=== PATIENT | male | born 1965 | race Caucasian/White ===

== ENCOUNTER 2022-11-29 09:25 | Outpatient (AMB) | payer OTHER, SELFPAY ==
[2022-11-29 09:36] VITALS: BP 128/80; PULSE 86; TEMP 37.2; O2SAT 98; BMI 28.8
--- NOTE | 2022-11-29 09:36 | AM.OFFWIN_ITS ---
Intake Vital Signs 11/29/22 09:36 Height 5 ft 4 in Weight 168 lb BMI 28.8 BP 128/80 Blood Pressure Location Lt brachial Position Sitting Pulse 86 Pulse Source Pulse Oximeter Temp 99.0 F Temp Source Temporal Artery Scan Pulse Oximetry (%) 98 Oxygen Delivery Method Room Air Intake Visit Reasons: EP, Low back pain Intake Note: pt is here for c/o lower back pain due to injury at work. states he pulled his lower back out at work. patient also states hes been having cramping in his hands and feet and tingly sensation in face since sunday Patient Tobacco Use Status: Current everyday Tobacco user Allergies No Known Allergies Allergy (Verified 11/29/22 10:08) Medication List - Last Reconciled 11/29/22 by Saran Cabral MD albuterol sulfate 90 mcg/actuation 2 puffs inhalation Q4H PRN atorvastatin 40 mg PO DAILY cyclobenzaprine 10 mg PO BEDTIME losartan 100 mg PO DAILY meloxicam 15 mg PO DAILY pantoprazole 40 mg PO DAILY thiamine HCl (vitamin B1) 100 mg PO DAILY Do you need a note to return to daycare/school/sports/work: Yes HPI EP, Low back pain HPI Details Patient presents to the office for a sick visit. Complaining of lower back pain for the past week. No history of fall or trauma prior to the onset of symptoms. No urinary incontinence. No fevers or chills. Pain is worse on bending forwards or sideways. Relieve done sitting down. Pain is radiating into the gluteal area. PFSH Social History Patient Tobacco Use Status: Current everyday Tobacco user Physical Exam Vital Signs: Last Vital Signs Temp 99.0 F 11/29/22 09:36 Pulse 86 11/29/22 09:36 BP 128/80 11/29/22 09:36 Pulse Ox 98 11/29/22 09:36 Oxygen Delivery Method Room Air 11/29/22 09:36 BMI result Body Mass Index 28.8 Const General: cooperative and healthy appearing Nutritional Appearance: well nourished Orientation/consciousness: patient oriented x3 Limitations: no limitations HEENT Head: Yes normal to inspection Eyes General: appearance normal, both eyes and all related structures Neck Neck: Yes normal visual inspection Chest Chest palpation & inspection: normal palpation of entire chest wall Resp Effort & Inspection: normal respiratory effort General: Yes no CVA tenderness Back/Spine/Pelvis Other: No spinal tenderness or paraspinal spasm. Back: no CVA tenderness Neuro General: patient oriented x3 Office Meds ketorolac 60 mg/2 mL intramuscular solution Performing Provider: Saran Cabral MD Performing Location: [facility] Administered by: Odalys Campbell RN on 11/29/22 10:02 Dose Route Admin Location Dispensed Lot Number Expiration Date [employer] 60 mg IM right gluteal 2.0 mL [id number] 05/18/23 01436-353-12 [employer] Assessment & Plan Assessment & Plan (1) Low back pain: Code(s): M54.50 - Low back pain, unspecified Qualifiers: Chronicity: acute Back pain laterality: bilateral Sciatica presence: without sciatica Qualified Code(s): M54.50 - Low back pain, unspecified Plan: Meloxicam and cyclobenzaprine called in. Toradol injection provided. Patient was advised rest. Note for work if necessary provided. Once pain symptoms subside, patient should start physical therapy. If symptoms worsen to follow-up here. Orders: Orders AMB Ketorolac Injection Today M54.50 - Low back pain, unspecified Medications: New meloxicam 15 mg PO DAILY 14 tabs 0RF cyclobenzaprine 10 mg PO BEDTIME 14 tabs 0RF Coding Level of Care Code Est Pt Level 4 (99802) Diagnoses Acute bilateral low back pain without sciatica M54.50 Chronicity: acute Back pain laterality: bilateral Sciatica presence: without sciatica
== END 2022-11-29 10:32 | disposition home or self-care (01) ==
PROVIDERS: PCP Emergency Medicine Emergency Medical Services; Visit Provider Internal Medicine
DX: M54.50 Low back pain, unspecified (principal)
CPT/HCPCS: 96372; 99214; J1885

== ENCOUNTER 2023-03-23 13:34 | Emergency (ER) | payer OTHER, SELFPAY ==
--- NOTE | 2023-03-23 13:37 | ED.FALL ---
HPI - Fall General Chief Complaint: Altered Mental Status Stated Complaint: FALL +LOC+MEJIA+HIT HEAD PER EMS Time Seen by Provider: 03/23/23 13:36 Source: patient, family and EMS Mode of arrival: EMS Limitations: no limitations History of Present Illness HPI Narrative: Patient is a 58-year-old male who presents emergency department via EMS for evaluation after syncopal episode with head strike. Patient reports that he was feeling well prior to this episode. He does admit to drinking 3 or 4 twisted teas and a few shots of hard liquor. He is a daily drinker states he typically does drink about this amount, denies history of DT/ seizures with withdrawal. He states that he was eating a piece of candy when he suddenly felt like he was choking on it. Per his daughter's report EMS was present at this time he then syncopized and fell down striking his head against the floor and had lost consciousness for a few seconds before coming to. The daughter called EMS. Upon EMS arrival patient was able to reports everything that had happened. He was going to refuse transport to the hospital, however once EMS asked him questions regarding orientation i.e. place time he was unable to answer these questions appropriately. He then was agreeable for transport. At the time my examination he remains confused to time, unaware of the year or the season or time day. He is oriented to person place and present. His only report at this time is a diffuse headache. He denies any globus sensation, difficulty breathing, chest pain, vision changes, neck pain, neck stiffness, nausea, vomiting, abdominal pain, numbness or tingling of his extremities. He does report he has a history of hypertension and hyperlipidemia for which he reports medication compliance. Related Data Home Medications Medication Instructions Recorded Confirmed albuterol sulfate 90 mcg/actuation 2 puff inhalation Q4H PRN cough 11/29/22 aerosol inhaler atorvastatin 40 mg tablet 40 mg PO DAILY 11/29/22 losartan 100 mg tablet 100 mg PO DAILY 11/29/22 pantoprazole 40 mg tablet,delayed 40 mg PO DAILY 11/29/22 release thiamine HCl (vitamin B1) 100 mg 100 mg PO DAILY 11/29/22 tablet Previous Rx's Medication Instructions Recorded cyclobenzaprine 10 mg tablet 10 mg PO BEDTIME #14 tabs 11/29/22 meloxicam 15 mg tablet 15 mg PO DAILY #14 tabs 11/29/22 Allergies Allergy/AdvReac Type Severity Reaction Status Date / Time No Known Allergies Allergy Verified 11/29/22 10:08 Review of Systems Review of Systems: Yes all other systems are reviewed and are negative [facility] Past Medical History Attestation statement: The following information was validated with the patient. Source: old records reviewed Onset Date is defined in the Problem List Problems that require an onset date and time if occurred within 24 hrs of arrival to the ED Aortic Dissection and Rupture; Neurologic impairment; Cardiopulmonary Arrest; Endotracheal Intubation; Insertion or Replacement of Mechanical Circulatory Assist Device Social History Social History Patient Tobacco Use Status: Current everyday Tobacco user Advance Directives: No Advance Directives Information Provided: Yes Physical Exam Vital Signs: Vital Signs: Last Vital Signs Temp 97.7 F 03/23/23 13:56 Pulse 53 03/23/23 17:49 Resp 12 03/23/23 17:49 BP 156/88 H 03/23/23 17:49 Pulse Ox 96 03/23/23 17:49 O2 Del Method Room Air 03/23/23 17:49 BMI result Body Mass Index 29.3 Appearance: Alert.?Oriented to person, place and time. No acute distress.?Normal affect. Head: Normocephalic, atraumatic. Eyes: Pupils equal, round and reactive to light.? EOMI. No nystagmus. ENT: Pharynx normal.?? Neck: Normal inspection.? Neck supple.?? No midline cervical spine tenderness, step-offs, deformities. CVS: Heart sounds normal. Normal heart rate and rhythm.? Pulses normal.?? Respiratory: No respiratory distress.? Lung sounds clear to auscultation bilaterally?? Abdomen: Soft and non-tender. Normoactive bowel sounds. ? Skin: Skin warm and dry.? Normal skin color.? Extremities: No lower extremity edema.? ? Neuro: Moves all extremities spontaneously. Sensation intact bilaterally. CN II-XII intact. No focal neuro deficits. Ambulates with normal steady gait. NIH Stroke Scale Internal: Initial- Upon Arrival Time: 13:51 Level of Consciousness: Alert Level of Consciousness Questions: Answers both questions correctly Level of Consciousness Commands: Performs both tasks correctly Best Gaze: Normal Visual: No visual loss Facial Palsy: Normal Motor Arm (Right): No drift Motor Arm (Left): No drift Motor Leg (Right): No drift Motor Leg (Left): No drift Limb Ataxia: Absent Sensory: Normal Best Language: No aphasia Dysarthia: Normal Extinction and Inattention: No abnormality Score: 0 Course Reevaluation(s) Reevaluation #1: CT of the head and cervical spine reveals no evidence of acute intracranial abnormality nor abnormality of the cervical spine. CBC reveals very mild leukocytosis of 11.4, no left shift , mild macrocytic anemia the does not meet transfusion criteria likely secondary to ETOH. COVID- 19 and influenza Testing are negative. Ethanol level of 142. She CMP revealing mild transaminitis, no history of priors for comparison, no right upper quadrant tenderness upon palpation, jaundice, I suspect this is secondary to chronic alcohol consumption. High sensitive troponin 3.7, EKG revealing normal sinus rhythm without acute ischemic findings. However given the history will obtain delta troponin to fully exclude ACS as etiology for symptoms. Reevaluation #2: Delta trop is negative. Disorientation has resolved. Conscious alert and oriented x3. Ambulatory with a steady gait. Headache has resolved. No current complaints. Suspect vasovagal syncope secondary to coughing his etiology for symptoms today. Reviewed worrisome signs and symptoms that would warrant re-evaluation in the emergency department. Offered detox from alcohol he declines detox services at this time. Stable for discharge. Time: 18:03 Medications Administered Discontinued Medications Generic Name Dose Route Start Last Admin Trade Name Joaquinq PRN Reason Stop Dose Admin Acetaminophen 975 mg 03/23/23 14:25 03/23/23 14:31 Acetaminophen 325 Mg Tablet PO 03/23/23 14:26 975 mg ONCE ONE Administration Sodium Chloride 1,000 mls @ 999 mls/hr 03/23/23 14:30 03/23/23 17:14 Ns IV 03/23/23 15:30 Infused .Q1H1M [facility] Infusion Medical Decision Making Medical Decision Making [facility] Narrative: Patient is a 58-year-old male with past medical history of hypertension hyperlipidemia who presents emergency department via EMS for evaluation after a syncopal episode with head strike loss of consciousness. He does admit to ETOH consumption prior to this. He is disoriented to time since this event which per his daughter would be atypical for him. Will obtain CBC to evaluate for leukocytosis/ anemia, CMP and lipase to evaluate for abnormal electrolytes /abnormal renal function/ abnormal hepatic/biliary function, EKG and troponin to evaluate for ischemia/ACS. Chest x-ray to evaluate for consolidation/ infiltrate/ mass/ pulmonary congestion, CT of the head and cervical spine to exclude ICH/ SDH/fracture/ subluxation, and urinalysis. In addition will obtain toxicology testing an ethanol level. Differential Diagnosis Differential Diagnoses: The differential diagnosis associated with the presentation includes ( See narrative above) Admission/Observation Consideration of admission/observation: Escalation of care including admission/observation considered ( see narrative above and course narrative for further details) Lab Data MDM Lab Attestation statement: I reviewed the patient's lab results. ( see course narrative) 03/23/23 14:11 03/23/23 14:11 Labs: Lab Results 03/23/23 03/23/23 03/23/23 Range/Units 14:08 14:10 14:11 WBC 11.4 H (4.8-10.8) X10*3/uL RBC 3.90 L (4.60-5.80) X10*6/uL Hgb 13.4 L (14.0-18.0) g/dl Hct 39.4 L (42.0-52.0) % MCV 101.0 H (80.0-98.0) fL MCH 34.4 H (27.0-33.0) pg MCHC 34.0 (31.0-36.0) g/dl RDW 13.0 (11.0-16.0) % Plt Count 285 (160-400) X10*3/uL MPV 10.5 (9.4-12.4) fL Immature Gran % (Auto) 0.4 (0.0-0.4) % Neut % (Auto) 54.4 (45-73) % Lymph % (Auto) 29.9 (20-40) % [place] % (Auto) 10.7 (2-11) % Eos % (Auto) 3.6 (0-4) % Baso % (Auto) 1.0 (0-2) % Lymph # (Auto) 3.4 (1.2-4.9) X10*3/uL [place] # (Auto) 1.2 (0.1-1.2) X10*3/uL Eos # (Auto) 0.4 (0.0-0.4) X10*3/uL Baso # (Auto) 0.1 (0.0-0.2) X10*3/uL Abs Immat Gran (auto) 0.05 H (0.00-0.03) X10*3/uL Absolute Neuts (auto) 6.2 (2.0-8.3) x10*3/uL Absolute Nucleated RBC 0.000 (0.0-0.012) X10*3/uL Nucleated RBC % (auto) 0.0 (0.0-0.2) /100WBC PT 11.0 L (11.1-13.3) SEC INR 0.9 (0.9-1.1) Sodium 137 (135-145) mmol/L Potassium 4.4 (3.3-5.1) mmol/L Chloride 95 L (96-108) mmol/L Carbon Dioxide 26 (22-29) mmol/L Anion Gap 20 (12-20) BUN 7 L (9-16) mg/dL Creatinine 0.82 (0.5-1.4) mg/dL Estim Creat Clear Calc 86.8 Estimated GFR > 60 Random Glucose 91 (60-115) mg/dL Calcium 9.8 (8.4-10.2) mg/dL Magnesium 1.9 (1.6-2.6) mg/dL Total Bilirubin 0.4 (0.0-1.0) mg/dL AST 41 H (5-37) U/L ALT 43 H (0-40) U/L Alkaline Phosphatase 147 H (39-117) U/L Troponin I High Sens 3.7 (<3.5-35.0) ng/L B-Natriuretic Peptide 21 (<100) pg/mL Total Protein 7.4 (6.5-8.0) g/dL Albumin 4.2 (3.5-5.0) g/dL Lipase 24 (8-78) U/L Urine Color Urine Appearance Urine pH (5.0-9.0) Ur Specific [place] (1.005-1.025) Urine Protein (Neg-Trace) mg/dL Urine Glucose (UA) (Negative) mg/dL Urine Ketones (Negative) mg/dL Urine Blood (Negative) Urine Nitrite (Negative) Ur Leukocyte Esterase (Negative) Urine RBC (0-2) /HPF Urine WBC (0-5) /HPF Ur Squamous Epith Cells (0-2) /HPF Urine Bacteria (None Seen) Hyaline Casts (0-2) /LPF Ethyl Alcohol 142 mg/dL COVID-19 (ALEJANDRO) Negative (Negative) COVID-19 Clin Com See Note Influenza Type A (RADHA) Negative (Negative) Influenza Type B (RADHA) Negative (Negative) Influenza A & B Note See Note 03/23/23 03/23/23 Range/Units 16:50 17:02 WBC (4.8-10.8) X10*3/uL RBC (4.60-5.80) X10*6/uL Hgb (14.0-18.0) g/dl Hct (42.0-52.0) % MCV (80.0-98.0) fL MCH (27.0-33.0) pg MCHC (31.0-36.0) g/dl RDW (11.0-16.0) % Plt Count (160-400) X10*3/uL MPV (9.4-12.4) fL Immature Gran % (Auto) (0.0-0.4) % Neut % (Auto) (45-73) % Lymph % (Auto) (20-40) % [place] % (Auto) (2-11) % Eos % (Auto) (0-4) % Baso % (Auto) (0-2) % Lymph # (Auto) (1.2-4.9) X10*3/uL [place] # (Auto) (0.1-1.2) X10*3/uL Eos # (Auto) (0.0-0.4) X10*3/uL Baso # (Auto) (0.0-0.2) X10*3/uL Abs Immat Gran (auto) (0.00-0.03) X10*3/uL Absolute Neuts (auto) (2.0-8.3) x10*3/uL Absolute Nucleated RBC (0.0-0.012) X10*3/uL Nucleated RBC % (auto) (0.0-0.2) /100WBC PT (11.1-13.3) SEC INR (0.9-1.1) Sodium (135-145) mmol/L Potassium (3.3-5.1) mmol/L Chloride (96-108) mmol/L Carbon Dioxide (22-29) mmol/L Anion Gap (12-20) BUN (9-16) mg/dL Creatinine (0.5-1.4) mg/dL Estim Creat Clear Calc Estimated GFR Random Glucose (60-115) mg/dL Calcium (8.4-10.2) mg/dL Magnesium (1.6-2.6) mg/dL Total Bilirubin (0.0-1.0) mg/dL AST (5-37) U/L ALT (0-40) U/L Alkaline Phosphatase (39-117) U/L Troponin I High Sens 5.2 (<3.5-35.0) ng/L B-Natriuretic Peptide (<100) pg/mL Total Protein (6.5-8.0) g/dL Albumin (3.5-5.0) g/dL Lipase (8-78) U/L Urine Color Yellow Urine Appearance Clear Urine pH 6.0 (5.0-9.0) Ur Specific [place] <= 1.005 (1.005-1.025) Urine Protein Negative (Neg-Trace) mg/dL Urine Glucose (UA) Negative (Negative) mg/dL Urine Ketones Negative (Negative) mg/dL Urine Blood Negative (Negative) Urine Nitrite Negative (Negative) Ur Leukocyte Esterase Trace H (Negative) Urine RBC 0-2 (0-2) /HPF Urine WBC 0-5 (0-5) /HPF Ur Squamous Epith Cells 0-2 (0-2) /HPF Urine Bacteria None Seen (None Seen) Hyaline Casts 0-2 (0-2) /LPF Ethyl Alcohol mg/dL COVID-19 (ALEJANDRO) (Negative) COVID-19 Clin Com Influenza Type A (RADHA) (Negative) Influenza Type B (RADHA) (Negative) Influenza A & B Note Independent Interpretation I performed an independent interpretation of an: EKG and CT Scan Interpretation: Rate: 63 Rhythm:? normal sinus rhythm [place]:? normal Normal P waves.? Normal QUIN.?? Normal QRS complex.?? ST T wave :?? no ST elevation, no ST depression no T-wave inversion qTC: 390 prior studies:? no priors available for review The study has been interpreted contemporaneously by me. Radiology Impression Discussion of test interpretation with radiology: I have reviewed the radiologist's reading. Radiologist Impression: CT/CT cervical spine wo IV con IMPRESSION: - No acute intracranial abnormality. - No acute osseous abnormality within the cervical spine. Independent Historian Clinical information obtained from an independent historian. History obtained from or confirmed by: EMS External Record Review External record reviewed: Outpatient record Discharge Plan Discharge Clinical Impression: Cough syncope Patient Disposition: Home, Self-Care Instructions: Syncope (ED) Additional Instructions: you should consider refraining from alcohol consumption. As discussed, this episode today was secondary to the coughing episode that you had experienced. Please contact your primary care provider to arrange for follow-up visit within 3 days. Return back to emergency department any new or worsening symptoms or concerns. Prescriptions: No Action losartan 100 mg tablet 100 mg PO DAILY pantoprazole 40 mg tablet,delayed release (DR/EC) 40 mg PO DAILY atorvastatin 40 mg tablet 40 mg PO DAILY thiamine HCl (vitamin B1) 100 mg tablet 100 mg PO DAILY albuterol sulfate 90 mcg/actuation HFA aerosol inhaler 2 puff inhalation Q4H PRN (Reason: cough) meloxicam 15 mg tablet 15 mg PO DAILY Qty: 14 0RF cyclobenzaprine 10 mg tablet 10 mg PO BEDTIME Qty: 14 0RF Referrals: RJ VILLASEÑOR [Primary Care Provider] -
[2023-03-23 13:56] VITALS: BP 133/78; PULSE 67; RESP 18; TEMP 36.5; O2SAT 98; BMI 29.3
[2023-03-23 14:00] VITALS: BP 128/85; BP 134/83; PULSE 62; PULSE 63
[2023-03-23 14:04] VITALS: BP 125/83; PULSE 56
[2023-03-23 15:06] VITALS: BP 134/83; PULSE 63; RESP 20; O2SAT 100
[2023-03-23 17:49] VITALS: BP 156/88; PULSE 53; RESP 12; O2SAT 96
== END 2023-03-23 18:45 | disposition home or self-care (01) ==
PROVIDERS: Emergency Provider Student in an Organized Health Care Education/Training Program; PCP Emergency Medicine Emergency Medical Services
DX: S09.90XA Unspecified injury of head, initial encounter (principal); R55 Syncope and collapse; R05.9 Cough, unspecified; R51.9 Headache, unspecified; R11.2 Nausea with vomiting, unspecified; M54.2 Cervicalgia; R07.89 Other chest pain; R06.02 Shortness of breath; F10.129 Alcohol abuse with intoxication, unspecified; Y90.6 Blood alcohol level of 120-199 mg/100 ml; W01.10XA Fall on same level from slipping, tripping and stumbling with subsequent striking against unspecified object, initial encounter; Y93.9 Activity, unspecified; Y92.9 Unspecified place or not applicable; Y99.9 Unspecified external cause status; Z11.52 Encounter for screening for COVID-19; Z20.822 Contact with and (suspected) exposure to COVID-19; Z79.899 Other long term (current) drug therapy
CPT/HCPCS: 36415; 70450; 71046; 72125; 80053; 80307; 81001; 83690; 83735; 83880; 84484; 85025; 85610; 87502; 87635; 93005; 96360; 96361; 99284

== ENCOUNTER → 2023-03-23 13:39 | Outpatient (BNV) | payer OTHER, SELFPAY | PROVIDERS: Emergency Provider Student in an Organized Health Care Education/Training Program; PCP Emergency Medicine Emergency Medical Services; Visit Provider Internal Medicine Cardiovascular Disease | DX: R55 Syncope and collapse (principal) | CPT/HCPCS: 93010 ==